=== PATIENT | male | born 1955 | race Caucasian/White ===

== ENCOUNTER 2016-09-20 15:46 | Emergency (ER) | payer SELFPAY ==
[2016-09-20 17:06] LABS: ABSOLUTE BASOPHILS # (AUTO) 0.1 10^3/uL (0.0-0.2); ABSOLUTE EOSINOPHILS # (AUTO) 0.2 10^3/uL (0.0-0.6); ABSOLUTE LYMPHOCYTES (AUTO) 2.3 10^3/uL (0.5-4.7); ABSOLUTE MONOCYTES (AUTO) 0.2 10^3/uL (0.1-1.4); ABSOLUTE NEUT (AUTO) 3.2 10^3/uL (1.7-8.2); BASOPHILS % (AUTO) 1.1 % (0-2); EOSINOPHILS % (AUTO) 2.6 % (0-6); HEMATOCRIT 43.3 % (37.9-51.0); HEMOGLOBIN 15.3 g/dL (13.5-17.0); HGB HCT DIFFERENCE 2.6; LYMPHOCYTES % (AUTO) 39.4 % (13-45); MEAN CORPUSCULAR HEMOGLOBIN 30.9 pg (27.0-33.4); MEAN CORPUSCULAR HGB CONC 35.3 g/dL (32.0-36.0); MEAN CORPUSCULAR VOLUME 87 fl (80-97); MONOCYTES % (AUTO) 3.2 % (3-13); RED BLOOD COUNT 4.95 10^6/uL (4.35-5.55); RED CELL DISTRIBUTION WIDTH 12.5 % (11.5-14.0); SEGMENTED NEUTROPHILS % (AUTO) 53.7 % (42-78); WHITE BLOOD COUNT 5.9 10^3/uL (4.0-10.5)
[2016-09-20 17:23] LABS: ALANINE AMINOTRANSFERASE 37 U/L (21-72); ALBUMIN 4.4 g/dL (3.5-5.0); ALKALINE PHOSPHATASE 89 U/L (38-126); ANION GAP 11 (5-19); ASPARTATE AMINO TRANSFERASE 31 U/L (17-59); BILIRUBIN,DIRECT 0.4 mg/dL (0.0-0.4); BILIRUBIN,TOTAL 1.6 mg/dL (0.2-1.3); BLOOD UREA NITROGEN 18 mg/dL (7-20); CALCIUM 9.7 mg/dL (8.4-10.2); CARBON DIOXIDE 25 mmol/L (22-30); CHLORIDE 105 mmol/L (98-107); GLUCOSE 94 mg/dL (75-110); SODIUM 141.4 mmol/L (137-145); TOTAL PROTEIN 7.8 g/dL (6.3-8.2)
--- NOTE | 2016-09-20 18:28 | ER Document Report ---
ED General - General Chief Complaint: Knee Pain Stated Complaint: LEFT FOOT PAIN Mode of Arrival: Ambulatory Information source: Patient Notes: 61-year-old male presents with complaints of left knee pain down to his feet. Patient notes symptoms have been ongoing for a week initially started as a cramping sensation. Patient denies any chest pain shortness breath difficulty breathing. Patient is on diuretics. Patient's mother has had DVT in the past. Patient is not on supplemental potassium TRAVEL OUTSIDE OF THE [place] IN LAST 30 DAYS: No - HPI Onset: Last week Onset/Duration: Persistent Quality of pain: Achy, Cramping Severity: Mild Pain Level: 1 Associated symptoms: Leg swelling Exacerbated by: Walking Relieved by: Denies Similar symptoms previously: No Recently seen / treated by doctor: No - Related Data Allergies/Adverse Reactions: No Known Allergies Allergy (Verified 03/08/12 07:21) Past Medical History - Social History Smoking Status: Never Smoker Cigarette use (# per day): No Chew tobacco use (# tins/day): No Smoking Education Provided: No Family History: Reviewed & Not Pertinent - Past Medical History Cardiac Medical History: Reports: Hx Hypertension Renal/ Medical History: Denies: Hx Peritoneal Dialysis Malignancy Medical History: Reports Hx Skin Cancer Musculoskeltal Medical History: Reports Hx Musculoskeletal Deformity, Reports Hx Musculoskeletal Trauma - Immunizations Hx Diphtheria, Pertussis, Tetanus Vaccination: Yes Review of Systems - Review of Systems Notes: REVIEW OF SYSTEMS: CONSTITUTIONAL : Denies fever, chills, or sweats. Denies recent illness. EENT: Denies eye, ear, throat, or mouth pain or symptoms. Denies nasal or sinus congestion or discharge. Denies throat, tongue, or mouth swelling or difficulty swallowing. CARDIOVASCULAR: Denies chest pain. Denies palpitations or racing or irregular heart beat. Denies ankle edema. RESPIRATORY: Denies cough, cold, or chest congestion. Denies shortness of breath, difficulty breathing, or wheezing. GASTROINTESTINAL: Denies abdominal pain or distention. Denies nausea, vomiting , or diarrhea. Denies blood in vomitus, stools, or per rectum. Denies black, tarry stools. Denies constipation. GENITOURINARY: Denies difficulty urinating, painful urination, burning, frequency, blood in urine, or discharge. MUSCULOSKELETAL: Left calf pain SKIN: Denies rash, lesions or sores. HEMATOLOGIC : Denies easy bruising or bleeding. LYMPHATIC: Denies swollen, enlarged glands. NEUROLOGICAL: Denies confusion or altered mental status. Denies passing out or loss of consciousness. Denies dizziness or lightheadedness. Denies headache. Denies weakness or paralysis or loss of use of either side. Denies problems with gait or speech. Denies sensory loss, numbness, or tingling. Denies seizures. PSYCHIATRIC: Denies anxiety or stress. Denies depression, suicidal ideation, or homicidal ideation. ALL OTHER SYSTEMS REVIEWED AND NEGATIVE. Dictation was performed using [employer] recognition software PHYSICAL EXAMINATION: GENERAL: Well-appearing, well-nourished and in no acute distress. HEAD: Atraumatic, normocephalic. EYES: Pupils equal round and reactive to light, extraocular movements intact, sclera anicteric, conjunctiva are normal. ENT: Nares patent, oropharynx clear without exudates. Moist mucous membranes. NECK: Normal range of motion, supple without lymphadenopathy LUNGS: Breath sounds clear to auscultation bilaterally and equal. No wheezes rales or rhonchi. HEART: Regular rate and rhythm without murmurs ABDOMEN: Soft, nontender, nondistended abdomen. No guarding, no rebound. No masses appreciated. Musculoskeletal: Normal range of motion, no pitting or edema. No cyanosis. NEUROLOGICAL: Cranial nerves grossly intact. Normal speech, normal gait. Normal sensory, motor exams PSYCH: Normal mood, normal affect. SKIN: Warm, Dry, normal turgor, no rashes or lesions noted. Physical Exam - Vital signs Vitals: Temp Pulse Resp BP Pulse Ox 98.3 F 81 16 103/72 96 09/20/16 15:54 09/20/16 15:54 09/20/16 15:54 09/20/16 15:54 09/20/16 15:54 Course - Re-evaluation Re-evalutation: 09/20/16 19:18 There is no obvious edema erythema, pulses are intact sensation is intact. Doppler was negative lab work notes no hypokalemia obvious cause of the patient' s pain. I will have him follow-up with his primary care physician for reevaluation and possible cardiology versus neurology After performing a Medical Screening Examination, I estimate there is LOW risk for INTRACRANIAL HEMORRHAGE, UNSTABLE SPINE FRACTURE, CENTRAL CORD SYNDROME, CAUDA EQUINA, THORACIC AORTIC DISSECTION, PNEUMOTHORAX, PERFORATED BOWEL, RUPTURED ABDOMINAL AORTIC ANEURYSM, ACUTE TENDON RUPTURE, COMPARTMENT SYNDROME, or OPEN FRACTURE, thus I consider the discharge disposition reasonable. Also, there is no evidence or peritonitis, sepsis, or toxicity. I have reevaluated this patient multiple times and no significant life threatening changes are noted. The patient and I have discussed the diagnosis and risks, and we agree with discharging home to follow-up with their primary doctor with the understanding that symptoms and presentations can change. We also discussed returning to the Emergency Department immediately if new or worsening symptoms occur. We have discussed the symptoms which are most concerning (e.g., bloody stool, fever, changing or worsening pain, vomiting) that necessitate immediate return. - Vital Signs Vital signs: Temp Pulse Resp BP Pulse Ox 98.3 F 81 16 103/72 96 09/20/16 15:54 09/20/16 15:54 09/20/16 15:54 09/20/16 15:54 09/20/16 15:54 - Laboratory Result Diagrams: 09/20/16 16:50 09/20/16 16:50 Laboratory results interpreted by me: 09/20/16 16:50 Total Bilirubin 1.6 H - Diagnostic Test Radiology reviewed: Image reviewed, Reports reviewed Discharge - Discharge Clinical Impression: Calf pain Qualifiers: Laterality: left Qualified Code(s): M79.662 - Pain in left lower leg Condition: Stable Disposition: HOME, SELF-CARE Instructions: Leg Cramps ([facility]), Leg Pain Nonspecific ([facility]) Prescriptions: Acetaminophen with Codeine [Tylenol #3 Tablet] 1 each PO Q4HP PRN #30 tablet PRN Reason: Referrals: ALTA NAYLOR MD [Primary Care Provider] - Follow up tomorrow
[2016-09-20] MEDS ORDERED: ACETAMINOPHEN WITH CODEINE #3 TABLET PO ONE (18:45)
[2016-09-20 19:23] VITALS: BP 134/83
== END 2016-09-20 18:45 | disposition home or self-care (01) ==
LOC: ER 15:46
DX: M79.662 Pain in left lower leg (principal); M25.562 Pain in left knee
CPT/HCPCS: 36415; 80053; 85025; 93971; 99284

== ENCOUNTER 2017-04-20 11:56 | Emergency (ER) | payer SELFPAY ==
--- NOTE | 2017-04-20 14:08 | ER Document Report ---
ED General - General Chief Complaint: High Blood Pressure Stated Complaint: BLOOD PRESSURE ISSUES Time Seen by Provider: 04/20/17 14:08 Notes: The patient is a 61-year-old male, past medical history hypertension, presents with several weeks of intermittent dull frontal headache and concern that his blood pressure is elevated. He took it at home and it was 160/90. He is taking his benazepril as instructed and his primary care physician is adjusting his medications. Patient says that Tylenol is somewhat helping his headache. He denies chest pain, shortness of breath, numbness, tingling, sudden onset of headache, neck stiffness, fevers, ataxia, or blurry vision. TRAVEL OUTSIDE OF THE [place] IN LAST 30 DAYS: No - Related Data Allergies/Adverse Reactions: No Known Allergies Allergy (Verified 04/20/17 12:10) Past Medical History - General Information source: Patient - Social History Smoking Status: Unknown if Ever Smoked Family History: Reviewed & Not Pertinent Patient has suicidal ideation: No Patient has homicidal ideation: No - Past Medical History Cardiac Medical History: Reports: Hx Hypertension Renal/ Medical History: Denies: Hx Peritoneal Dialysis Malignancy Medical History: Reports Hx Skin Cancer Musculoskeltal Medical History: Reports Hx Musculoskeletal Deformity, Reports Hx Musculoskeletal Trauma - Immunizations Hx Diphtheria, Pertussis, Tetanus Vaccination: Yes Review of Systems - Review of Systems Notes: REVIEW OF SYSTEMS: CONSTITUTIONAL: -fevers, -chills EENT: -eye pain, -difficulty swallowing, -nasal congestion CARDIOVASCULAR:-chest pain, -syncope. RESPIRATORY: -cough, -SOB GASTROINTESTINAL: -abdominal pain, - nausea, -vomiting, -diarrhea GENITOURINARY: -dysuria, -hematuria MUSCULOSKELETAL: -back pain, -neck pain SKIN: -rash or skin lesions. HEMATOLOGIC: -easy bruising or bleeding. LYMPHATIC: -swollen, enlarged glands. NEUROLOGICAL: -altered mental status or loss of consciousness, +headache, - neurologic symptoms PSYCHIATRIC: -anxiety, -depression. ALL OTHER SYSTEMS REVIEWED AND NEGATIVE. Physical Exam - Vital signs Vitals: Temp Pulse Resp BP Pulse Ox 98.1 F 58 L 18 153/95 H 96 04/20/17 12:12 04/20/17 12:12 04/20/17 12:12 04/20/17 12:12 04/20/17 12:12 - Notes Notes: PHYSICAL EXAMINATION: GENERAL: Well-appearing, well-nourished and in no acute distress. HEAD: Atraumatic, normocephalic. EYES: Pupils equal round and reactive to light, extraocular movements intact, sclera anicteric, conjunctiva are normal. ENT: nares patent, oropharynx clear without exudates. Moist mucous membranes. NECK: Normal range of motion, supple without lymphadenopathy LUNGS: Breath sounds clear to auscultation bilaterally and equal. No wheezes rales or rhonchi. HEART: Regular rate and rhythm without murmurs ABDOMEN: Soft, nontender, normoactive bowel sounds. No guarding, no rebound. No masses appreciated. EXTREMITIES: Normal range of motion, no pitting or edema. No cyanosis. NEUROLOGICAL: Cranial nerves grossly intact. Normal speech, normal gait. Normal sensory and motor exams. PSYCH: Normal mood, normal affect. SKIN: Warm, Dry, normal turgor, no rashes or lesions noted. Course - Re-evaluation Re-evalutation: Patient appears well. His blood pressure was initially 158/90 and improved to 130/81 without any further intervention. His headache is benign in nature and is not consistent with SAH, ICH or meningitis at this time. Instructed him to keep a blood pressure log and to have his primary care physician adjust his blood pressure medications. He is comfortable with the plan and understands return precautions. - Vital Signs Vital signs: Temp Pulse Resp BP Pulse Ox 97.5 F 58 L 19 116/82 98 04/20/17 14:04 04/20/17 12:12 04/20/17 14:36 04/20/17 14:37 04/20/17 14:36 Discharge - Discharge Clinical Impression: Blood pressure check Headache Qualifiers: Headache type: unspecified Headache chronicity pattern: chronic headache Intractability: not intractable Qualified Code(s): R51 - Headache Condition: Stable Disposition: HOME, SELF-CARE Additional Instructions: HEADACHE: The physician does not feel that the headache you are experiencing has a serious underlying cause. Most headaches are due to emotional stress, with resultant muscle tension (tension headache). Occasionally, headaches are secondary to changes in the blood vessels of the scalp (vascular headache and migraine headache). Sometimes, a headache is the first symptom of another developing illness, such as a viral infection. You have no evidence of stroke, bleeding, meningitis, or other serious cause of your headache. The treatment of headaches varies with the severity and cause of the pain. Not all headaches need pain shots. In fact, there is evidence that using narcotics for headaches may make them worse in the long run. The physician will determine the therapy that's in your best interest. If you develop a fever, if the headache is different from any you've previously experienced, or if the headache progressively worsens, then call your physician at once or go to the emergency room. FOLLOW-UP CARE: If you have been referred to a physician for follow-up care, call the physician s office for an appointment as you were instructed or within the next two days. If you experience worsening or a significant change in your symptoms, notify the physician immediately or return to the Emergency Department at any time for re-evaluation. HIGH BLOOD PRESSURE, NOT TREAT: When your blood pressure was taken today it was elevated. Today's reading was 130/87. We do not think you need to have your blood pressure treated today. Sometimes, stress or illness causes a temporary elevation of your blood pressure. We suggest that you get your blood pressure measured again during the next few days to see if this elevated blood pressure is more than a temporary abnormality. If your blood pressure is greater than 150/90 on each occasion, you must have treatment. Some simple things you can do to help are: If you have blood pressure medicine but aren't using it regularly, start taking it again. Get some aerobic exercise for at least 20 minutes on a daily basis. (See your doctor before beginning a new exercise program.) Eat a low-fat diet. Lose excess weight. Avoid salty foods and avoid adding salt to any of the foods you eat. Avoid diet pills, decongestants, "energizing" herbs, and other medicines that elevate blood pressure. If left untreated, hypertension greatly enhances your risk for developing heart disease and strokes. Please don't ignore this problem. ANGIOTENSIN CONVERTING ENZYME INHIBITOR MEDICATION: "DAVID inhibitor" drugs are used to lower high blood pressure (or to reduce the "work" of the heart in patients with heart failure). These drugs block an enzyme that makes your blood vessels constrict and makes you retain salt. The result is lower blood pressure. DAVID inhibitors cause few side effects. The most common side effect is a dry nagging cough. Occasionally, lightheadedness may occur while you get used to the medicine. Some patients may retain extra potassium (this is a problem if you are taking potassium supplements, potassium-containing salt substitutes, or a potassium-retaining drug such as triamterene, spironolactone, or amiloride) . If you are taking lithium, the lithium level must be rechecked after starting an DAVID inhibitor. DAVID inhibitors should NOT be used during . Contact the doctor or return if you develop severe lightheadedness, wheeze , weakness, palpitations or other new symptoms. FOLLOW-UP CARE: If you have been referred to a physician for follow-up care, call the physician s office for an appointment as you were instructed or within the next two days. If you experience worsening or a significant change in your symptoms, notify the physician immediately or return to the Emergency Department at any time for re-evaluation. Forms: Elevated Blood Pressure Referrals: ALTA NAYLOR MD [Primary Care Provider] - Follow up as needed
[2017-04-20 14:43] VITALS: BP 116/82
== END 2017-04-20 14:42 | disposition home or self-care (01) ==
LOC: ER 11:56
DX: I10 Essential (primary) hypertension (principal); R51 Headache
CPT/HCPCS: 99283

== ENCOUNTER 2019-03-05 20:40 | Observation (INO) | payer MEDICARE, OTHER ==
--- NOTE | 2019-03-05 23:21 | ER Document Report ---
ED Medical Screen (RME) - General Chief Complaint: Dizziness Stated Complaint: VOMITING,DIZZY Time Seen by Provider: 03/05/19 23:18 Primary Care Provider: JUANCARLOS SULLIVAN MD [Primary Care Provider] - Follow up as needed Notes: Patient is a 63-year-old male history of hypertension presents to the emergency department for an episode of dizziness. Patient states he was at [employer] when all of a sudden he got dizzy and lightheaded. States he felt generalized weakness. Patient's denying any chest pain or shortness of breath. Family states patient broke out in a sweat and then had 2 episodes of vomiting. Patien t states that this time he just feels generalized weakness. Patient voices yesterday as took his blood pressure and it was 80 systolic. States he drank some water and felt better. Patient also complains of generalized jaw pain over the last couple of days. GENERAL: Alert, interacts well. No acute distress. LUNGS: Clear to auscultation bilaterally, no wheezes, rales, or rhonchi. No respiratory distress. I have greeted and performed a rapid initial assessment of this patient. A comprehensive ED assessment and evaluation of the patient, analysis of test results and completion of the medical decision making process will be conducted by additional ED providers. I have specifically instructed the patient or family members with the patient to immediately return to any nursing staff should anything change in the patient's condition or with their chief complaint. This medical record was dictated with voice recognizing software. There may be grammatical, syntax errors that are unintended. TRAVEL OUTSIDE OF THE [place] IN LAST 30 DAYS: No - Related Data Allergies/Adverse Reactions: No Known Allergies Allergy (Verified 04/20/17 12:10) Past Medical History - Social History Chew tobacco use (# tins/day): No - Past Medical History Cardiac Medical History: Reports: Hx Hypertension Renal/ Medical History: Denies: Hx Peritoneal Dialysis Malignancy Medical History: Reports Hx Skin Cancer Musculoskeltal Medical History: Reports Hx Musculoskeletal Deformity, Reports Hx Musculoskeletal Trauma - Immunizations Hx Diphtheria, Pertussis, Tetanus Vaccination: Yes Physical Exam - Vital signs Vitals: Temp Pulse Resp BP Pulse Ox 98.0 F 58 L 16 115/74 92 03/05/19 21:10 03/05/19 21:10 03/05/19 21:10 03/05/19 21:10 03/05/19 21:10 Course - Vital Signs Vital signs: Temp Pulse Resp BP Pulse Ox 98.0 F 58 L 16 115/74 92 03/05/19 21:10 03/05/19 21:10 03/05/19 21:10 03/05/19 21:10 03/05/19 21:10 Doctor's Discharge - Discharge Referrals: JUANCARLOS SULLIVAN MD [Primary Care Provider] - Follow up as needed
[2019-03-05 23:50] LABS: ABSOLUTE BASOPHILS # (AUTO) 0.1 10^3/uL (0.0-0.2); ABSOLUTE EOSINOPHILS # (AUTO) 0.1 10^3/uL (0.0-0.6); ABSOLUTE LYMPHOCYTES (AUTO) 1.8 10^3/uL (0.5-4.7); ABSOLUTE MONOCYTES (AUTO) 0.3 10^3/uL (0.1-1.4); ABSOLUTE NEUT (AUTO) 4.5 10^3/uL (1.7-8.2); BASOPHILS % (AUTO) 0.9 % (0-2); EOSINOPHILS % (AUTO) 1.6 % (0-6); HEMATOCRIT 43.5 % (37.9-51.0); HEMOGLOBIN 14.9 g/dL (13.5-17.0); LYMPHOCYTES % (AUTO) 26.3 % (13-45); MEAN CORPUSCULAR HEMOGLOBIN 30.1 pg (27.0-33.4); MEAN CORPUSCULAR HGB CONC 34.3 g/dL (32.0-36.0); MEAN CORPUSCULAR VOLUME 88 fl (80-97); MONOCYTES % (AUTO) 4.7 % (3-13); PLATELET COUNT 286 10^3/uL (150-450); RED BLOOD COUNT 4.96 10^6/uL (4.35-5.55); RED CELL DISTRIBUTION WIDTH 12.6 % (11.5-14.0); SEGMENTED NEUTROPHILS % (AUTO) 66.5 % (42-78); TOTAL CELLS COUNTED % (AUTO) 100 %; WHITE BLOOD COUNT 6.8 10^3/uL (4.0-10.5)
[2019-03-06 00:01] LABS: ALBUMIN 4.2 g/dL (3.5-5.0); ALKALINE PHOSPHATASE 85 U/L (38-126); ANION GAP 11 (5-19); ASPARTATE AMINO TRANSFERASE 28 U/L (17-59); BILIRUBIN,DIRECT 0.2 mg/dL (0.0-0.4); BLOOD UREA NITROGEN 21 mg/dL (7-20); CALCIUM 9.6 mg/dL (8.4-10.2); CARBON DIOXIDE 25 mmol/L (22-30); CHLORIDE 100 mmol/L (98-107); CREATINE KINASE 192 U/L (55-170); GLUCOSE 155 mg/dL (75-110); POTASSIUM 3.8 mmol/L (3.6-5.0); TOTAL PROTEIN 7.4 g/dL (6.3-8.2)
--- NOTE | 2019-03-06 00:01 | RADIOLOGY REPORT (SQ) ---
EXAM DESCRIPTION: XR CHEST 1 VIEW COMPLETED DATE/TME: 03/05/2019 23:18 CLINICAL HISTORY: 63 years, Male, dizziness COMPARISON: Prior study from 03/08/2012 NUMBER OF VIEWS: One TECHNIQUE: Single frontal view of the chest was obtained LIMITATIONS: None. FINDINGS: Cardiac and mediastinal contours are stable. There is focal asymmetric opacity located about the right apex, new from the previous examination dated 03/08/2012. Lungs are otherwise clear. No pleural effusion or pneumothorax. IMPRESSION: Asymmetric nodular opacity projecting about the right apex appears new from the previous study dated 03/08/2012. Recommend correlation with dedicated CT of the chest. Otherwise, clear lungs. copyright 2010 [employer]- All Rights Reserved
[2019-03-06 00:11] LABS: CREATINE KINASE MB 2.05 ng/mL (<4.55)
[2019-03-06 00:14] LABS: TROPONIN I < 0.012 ng/mL
[2019-03-06 01:00] LABS: APPEARANCE,URINE CLEAR; BILIRUBIN,URINE NEGATIVE (NEGATIVE); COLOR,URINE YELLOW; GLUCOSE, URINE NEGATIVE (NEGATIVE); KETONES,URINE NEGATIVE (NEGATIVE); LEUKOCYTE ESTERASE,URINE NEGATIVE (NEGATIVE); NITRITE,URINE NEGATIVE (NEGATIVE); PROTEIN,URINE NEGATIVE (NEGATIVE); URINE SPECIFIC GRAVITY 1.029
--- NOTE | 2019-03-06 01:19 | ER Document Report ---
ED General - General Chief Complaint: Dizziness Stated Complaint: VOMITING,DIZZY Time Seen by Provider: 03/05/19 23:18 Notes: Patient is a 63-year-old male that comes emergency department for chief complaint of an episode that happened earlier when he was getting out of the car when he suddenly felt really lightheaded, he states he broke out into a sweat, and he got nauseated and vomited twice. He states he felt like he was in a pass out but he did not. He states he got pains in his jaw as well. He denies spinning around in a [place] sensation. He denies headache, chest pain, shortness of breath. He states that he did this earlier in the week as well and he checked his blood pressure in the systolic was 80. He states he feels a week now but he denies any current complaints. Patient does work outside in the sun all day. Is on medication for hypertension, he has a history of basal cell carcinoma which was removed, he denies smoking, alcohol, recreational drugs, he denies medical history otherwise. TRAVEL OUTSIDE OF THE [place] IN LAST 30 DAYS: No - Related Data Allergies/Adverse Reactions: No Known Allergies Allergy (Verified 04/20/17 12:10) Past Medical History - General Information source: Patient - Social History Smoking Status: Never Smoker Chew tobacco use (# tins/day): No Frequency of alcohol use: None Drug Abuse: None Lives with: Family Family History: Reviewed & Not Pertinent Patient has suicidal ideation: No Patient has homicidal ideation: No - Past Medical History Cardiac Medical History: Reports: Hx Hypertension Renal/ Medical History: Denies: Hx Peritoneal Dialysis Malignancy Medical History: Reports Hx Skin Cancer Musculoskeletal Medical History: Reports Hx Musculoskeletal Deformity, Reports Hx Musculoskeletal Trauma - Immunizations Hx Diphtheria, Pertussis, Tetanus Vaccination: Yes Review of Systems - Review of Systems Constitutional: No symptoms reported EENT: No symptoms reported Cardiovascular: See HPI Respiratory: No symptoms reported Gastrointestinal: See HPI Genitourinary: No symptoms reported Male Genitourinary: No symptoms reported Musculoskeletal: No symptoms reported Skin: No symptoms reported Hematologic/Lymphatic: No symptoms reported Neurological/Psychological: See HPI Physical Exam - Vital signs Vitals: Temp Pulse Resp BP Pulse Ox 98.0 F 58 L 16 115/74 92 03/05/19 21:10 03/05/19 21:10 03/05/19 21:10 03/05/19 21:10 03/05/19 21:10 - Notes Notes: GENERAL: Alert, interacts well. No acute distress. HEAD: Normocephalic, atraumatic. EYES: Pupils equal, round, and reactive to light. Extraocular movements intact. ENT: Oral mucosa moist, tongue midline. Oropharynx unremarkable. Airway patent. Nares patent, no nasal septal hematoma NECK: Full range of motion. Supple. Trachea midline. LUNGS: Clear to auscultation bilaterally, no wheezes, rales, or rhonchi. No respiratory distress. HEART: Bradycardia, normal rhythm, no murmur ABDOMEN: Soft, non-tender. Non-distended. EXTREMITIES: Moves all 4 extremities spontaneously. No edema, normal radial and dorsalis pedis pulses bilaterally. No cyanosis. BACK: no cervical, thoracic, lumbar midline tenderness. No saddle anesthesia, normal distal neurovascular exam. Moves all extremities in full range of motion. NEUROLOGICAL: Alert and oriented x3. Normal speech. Cranial nerves II through XII grossly intact. PSYCH: Normal affect, normal mood. SKIN: Warm, dry, normal turgor. No rashes or lesions noted. Course - Re-evaluation Re-evalutation: Patient symptoms reported are concerning. On exam he is bradycardic but he is otherwise well-appearing. CBC unremarkable, chemistry unremarkable, troponin negative, urinalysis shows elevated specific gravity but is otherwise unremarkable, given IV fluids. Chest x-ray nonspecific. I discussed patient's presentation, work-up, symptoms with Dr. Lam. He does r ecommend admission for syncopal work-up because of patient's symptoms, symptoms are concerning including diaphoresis, vomiting, jaw pain, lightheadedness, and bradycardia on presentation. Will discuss with hospitalist. I discussed with family and they are in full agreement with this plan. Discussed with Dr. Farias, internal medicine, he does request orthostatic vital signs, these were performed and shows he develops worsening bradycardia with standing but no other findings were noted. Patient admitted to telemetry observation. - Vital Signs Vital signs: Temp Pulse Resp BP Pulse Ox 97.5 F 56 L 20 146/78 H 99 03/06/19 05:24 03/06/19 05:36 03/06/19 05:24 03/06/19 05:24 09/29/19 05:24 - Laboratory Result Diagrams: 03/05/19 23:20 03/05/19 23:20 Laboratory results interpreted by me: 03/05/19 03/06/19 23:20 00:41 Sodium 135.9 L BUN 21 H Glucose 155 H Creatine Kinase 192 H Urine Urobilinogen 2.0 H - EKG Interpretation by Me Additional EKG results interpreted by me: EKG shows sinus bradycardia at a rate of 54, QTC of 433, first-degree heart block with ME interval of 204. Normal axis. Nonspecific intraventricular conduction delay. No T wave inversions or ST segment changes in consecutive leads. Discharge - Discharge Clinical Impression: Near syncope, Bradycardia, Lightheadedness Vomiting Qualifiers: Vomiting type: unspecified Vomiting Intractability: non-intractable Nausea presence: with nausea Qualified Code(s): R11.2 - Nausea with vomiting, unspecified Condition: Stable Disposition: ADMITTED OBSERVATION Admitting Provider: Jarrett (Hospitalist) Unit Admitted: Telemetry
[2019-03-06] MEDS ORDERED: NORMAL SALINE 1000 ML 1,000 ML IV ONE (01:20)
[2019-03-06] MEDS ORDERED: ACETAMINOPHEN 325 MG TABLET PO PRN (03:05)
[2019-03-06] MEDS ORDERED: MAG HYDROX/AL HYDROX/SIMETH SUSP 30 ML UDCUP PO PRN (03:05)
[2019-03-06 04:21] LABS: CREATINE KINASE MB 1.72 ng/mL (<4.55); TROPONIN I < 0.012 ng/mL
[2019-03-06] MEDS: HEPARIN SOD (PORCINE) 5,000 UNIT/ML 1 ML VIAL SUBCUT SCH ×3 (05:46→21:38)
[2019-03-06] MEDS: NORMAL SALINE 1000 ML 1,000 ML IV PRN ×2 (05:47→09:35)
--- NOTE | 2019-03-06 06:17 | PDOC H&P ---
History of Present Illness Admission Date/PCP: 03/06/19 03:49 JUANCARLOS SULLIVAN MD Patient complains of: Lightheadedness History of Present Illness: MARCOS ARMENDARIZ JR is a 63 year old male with a past medical history of osteoarthritis and hypertension presents with 3 days of general fatigue followed by 2 presyncopal episodes in the last 12 hours occurring upon standing from a sitting position. 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 He denies headache, blurred vision, focal weakness, chest pain shortness of breath nausea vomiting or palpitations. He denies recent change of medications, excessive energy drinks or caffeine. In the emergency room he is found to have bradycardia and a nonspecific intraventricular conduction delay. Orthostatic blood pressures are unable to reproduce symptoms and he is referred to the hospitalist for admission. Patient is tearful and does admit exceptional social stressors and describes grief after the recent of his brother from an unknown cancer. Past Medical History Cardiac Medical History: Reports: Hypertension Malignancy Medical History: Reports: Skin Cancer Psychiatric Medical History: Reports: Depression Social History Information Source: Patient Lives with: Family Smoking Status: Never Smoker Frequency of Alcohol Use: None Hx Recreational Drug Use: No Drugs: None Hx Prescription Drug Abuse: No - Advance Directive Resuscitation Status: Full Code Family History Family History: Reviewed & Not Pertinent Parental Family History Reviewed: Yes Children Family History Reviewed: Yes Sibling(s) Family History Reviewed.: Yes Medication/Allergy Home Medications: Benazepril/Hydrochlorothiazide [Lotensin Hct 20-12.5 Tablet] 1 each PO BID 03/08/12 Allergies/Adverse Reactions: No Known Allergies Allergy (Verified 04/20/17 12:10) Review of Systems Constitutional: ABSENT: chills, fever(s), headache(s), weight gain, weight loss Eyes: ABSENT: visual disturbances Ears: ABSENT: hearing changes Cardiovascular: ABSENT: chest pain, dyspnea on exertion, edema, orthropnea, palpitations Respiratory: ABSENT: cough, hemoptysis Gastrointestinal: ABSENT: abdominal pain, constipation, diarrhea, hematemesis, hematochezia, nausea, vomiting Genitourinary: ABSENT: dysuria, hematuria Musculoskeletal: ABSENT: joint swelling Integumentary: ABSENT: rash, wounds Neurological: ABSENT: abnormal gait, abnormal speech, confusion, dizziness, focal weakness, syncope Psychiatric: ABSENT: anxiety, depression, homidical ideation, suicidal ideation Endocrine: ABSENT: cold intolerance, heat intolerance, polydipsia, polyuria Hematologic/Lymphatic: ABSENT: easy bleeding, easy bruising Physical Exam Vital Signs: Temp Pulse Resp BP Pulse Ox 97.5 F 53 L 20 146/78 H 99 03/06/19 05:24 03/06/19 05:24 03/06/19 05:24 03/06/19 05:24 03/06/19 05:24 Intake & Output 03/04/19 03/05/19 03/06/19 11:59 11:59 11:59 Intake Total 1000 Balance 1000 Weight 100.6 kg General appearance: PRESENT: no acute distress, cooperative, obese, well-d eveloped, well-nourished Head exam: PRESENT: atraumatic, normocephalic Eye exam: PRESENT: conjunctiva pink, EOMI, PERRLA. ABSENT: scleral icterus Ear exam: PRESENT: normal external ear exam Mouth exam: PRESENT: moist, tongue midline Neck exam: ABSENT: carotid bruit, JVD, lymphadenopathy, thyromegaly Respiratory exam: PRESENT: clear to auscultation leila. ABSENT: rales, rhonchi, wheezes Cardiovascular exam: PRESENT: bradycardia. ABSENT: diastolic murmur, rubs, systolic murmur Pulses: PRESENT: normal dorsalis pedis pul Vascular exam: PRESENT: normal capillary refill GI/Abdominal exam: PRESENT: normal bowel sounds, soft. ABSENT: distended, gua rding, mass, organolmegaly, rebound, tenderness Rectal exam: PRESENT: deferred Extremities exam: PRESENT: full ROM. ABSENT: calf tenderness, clubbing, pedal edema Neurological exam: PRESENT: alert, awake, oriented to person, oriented to place, oriented to time, oriented to situation, CN II-XII grossly intact. ABSENT: peng r sensory deficit Psychiatric exam: PRESENT: appropriate affect, normal mood. ABSENT: homicidal ideation, suicidal ideation Skin exam: PRESENT: dry, intact, warm. ABSENT: cyanosis, rash Results Laboratory Results: 03/05/19 23:20 03/05/19 23:20 03/05/19 03/05/19 03/06/19 23:20 23:20 00:41 WBC 6.8 RBC 4.96 Hgb 14.9 Hct 43.5 MCV 88 MCH 30.1 MCHC 34.3 RDW 12.6 Plt Count 286 Seg Neutrophils % 66.5 Sodium 135.9 L Potassium 3.8 Chloride 100 Carbon Dioxide 25 Anion Gap 11 BUN 21 H Creatinine 1.05 Est GFR ( Amer) > 60 Glucose 155 H Calcium 9.6 Magnesium Total Bilirubin 1.0 AST 28 Alkaline Phosphatase 85 Total Protein 7.4 Albumin 4.2 Urine Color YELLOW Urine Appearance CLEAR Urine pH 5.0 Ur Specific [place] 1.029 Urine Protein NEGATIVE Urine Glucose (UA) NEGATIVE Urine Ketones NEGATIVE Urine Blood NEGATIVE Urine Nitrite NEGATIVE Ur Leukocyte Esterase NEGATIVE Urine WBC (Auto) 1 Urine RBC (Auto) 2 03/06/19 03:10 WBC RBC Hgb Hct MCV MCH MCHC RDW Plt Count Seg Neutrophils % Sodium Potassium Chloride Carbon Dioxide Anion Gap BUN Creatinine Est GFR ( Amer) Glucose Calcium Magnesium 1.9 Total Bilirubin AST Alkaline Phosphatase Total Protein Albumin Urine Color Urine Appearance Urine pH Ur Specific [place] Urine Protein Urine Glucose (UA) Urine Ketones Urine Blood Urine Nitrite Ur Leukocyte Esterase Urine WBC (Auto) Urine RBC (Auto) 03/05/19 03/05/19 03/06/19 23:20 23:20 03:10 Creatine Kinase 192 H CK-MB (CK-2) 2.05 1.72 Troponin I < 0.012 < 0.012 03/06/19 03:10 Creatine Kinase 152 CK-MB (CK-2) Troponin I Impressions: Chest X-Ray 03/05/19 23:18 IMPRESSION: Asymmetric nodular opacity projecting about the right apex appears new from the previous study dated 03/08/2012. Recommend correlation with dedicated CT of the chest. Otherwise, clear lungs. copyright 2010 [employer]- All Rights Reserved Assessment and Plan - Diagnosis (1) Bradycardia Is this a current diagnosis for this admission?: Yes Plan: Telemetry observation, follow-up cardiac enzymes, orthostatic blood pressures, echocardiogram and carotid Doppler (2) Grief Is this a current diagnosis for this admission?: Yes Plan: Consider SSRI (3) Lightheadedness Is this a current diagnosis for this admission?: Yes Plan: Likely secondary to #1, IV fluid challenge - Time Time Spent with patient: 25-34 minutes - Inpatient Certification Medical Necessity: Need Close Monitoring Due to Risk of Patient Decompensation
[2019-03-06 07:56] LABS: URINE AMPHETAMINES SCREEN NEGATIVE; URINE BARBITURATES SCREEN NEGATIVE; URINE BENZODIAZEPINES SCREEN NEGATIVE; URINE COCAINE SCREEN NEGATIVE; URINE MARIJUANA (THC) SCREEN NEGATIVE; URINE METHADONE SCREEN NEGATIVE; URINE PHENCYCLIDINE SCREEN NEGATIVE
[2019-03-06 08:53] LABS: CREATINE KINASE MB 1.52 ng/mL (<4.55)
[2019-03-06 08:55] LABS: TROPONIN I < 0.012 ng/mL
--- NOTE | 2019-03-06 11:00 | RADIOLOGY REPORT (SQ) ---
EXAM DESCRIPTION: CTA CHEST COMPLETED DATE/TIME: 03/06/2019 10:44 am REASON FOR STUDY: syncope, tachycardia, elevated d.dimer COMPARISON: Chest radiograph TECHNIQUE: CT scan of the chest performed using helical scanning technique with dynamic intravenous contrast injection. Images reviewed with lung, soft tissue and bone windows. Reconstructed coronal and sagittal MPR images reviewed. Additional 3 dimensional post-processing performed to develop Maximal Intensity Projection images (PR P). All images stored on PACS. All CT scanners at this facility use dose modulation, iterative reconstruction, and/or weight based d osing when appropriate to reduce radiation dose to as low as reasonably achievable (ALARA). [facility]: Dose Right [facility]: CareDose [facility]: Dose Right [facility]: Teradose 4D [facility]: [employer] CONTRAST TYPE AND DOSE: contrast/concentration: Isovue 350.00 mg/ml; Total Contrast Delivered: 69.0 ml; Total Saline Delivered: 80.0 ml Contrast bolus optimized for the pulmonary arteries. Not diagnostic for the aorta. RENAL FUNCTION: GFR > 60. RADIATION DOSE: CT Rad equipment meets quality standard of care and radiation dose reduction techniq ues were employed. CTDIvol: 24.4 - 26.4 mGy. DLP: 944 mGy-cm. . LIMITATIONS: None. FINDINGS: LUNGS AND PLEURA: No masses, infiltrates, or pneumothorax. No pleural effusions or pleura l calcifications. AORTA AND GREAT VESSELS: No aneurysm. Contrast bolus not optimized for the aorta. HEART: No pericardial effusion. No significant coronary artery calcifications. PULMONARY ARTERIES: No emboli visualized in the main pulmonary arteries or the segmental branches. HILAR AND MEDIASTINAL STRUCTURES: No identified masses or abnormal nodes. HARDWARE: None in the chest. UPPER ABDOMEN: No significant findings. Limited exam. THYROID AND OTHER SOFT TISSUES: No masses. No adenopathy. BONES: No acute or significant finding. 3D MIPS: Confirm above findings. OTHER: No other significant finding. IMPRESSION: NORMAL CTA OF THE CHEST. NO PULMONARY EMBOLI. COMMENT: Quality ID # 436: Final reports with documentation of one or more dose reduction techniques (e.g., Automated exposure control, adjustment of the mA and/or kV according to patient size, use of iterative reconstruction technique) TECHNICAL DOCUMENTATION: JOB ID: [id number] [employer]- All Rights Reserved Reading location - IP/workstation name: [email or web address]
[2019-03-06] MEDS ORDERED: (PENDING PHARMACY ID) (Benazepril Hcl [Benazepril Hcl] 40 MG) PO SCH (13:00)
[2019-03-06] MEDS ORDERED: MECLIZINE HCL 25 MG TABLET PO PRN (14:11)
--- NOTE | 2019-03-06 14:37 | Progress Note ---
Provider Note Provider Note: MARCOS ARMENDARIZ JR is a 63 year old male with a past medical history of osteoarthritis and hypertension who was admitted early this morning by the talk show host for presyncope. Briefly met with the patient and his family today; symptoms are somewhat suggestive of vertigo. The patient had to have generalized fatigue for 2 to 3 days with left ear discomfort but no other symptoms. Approximately 20 minutes prior to his presyncopal event, the patient had commented to his that he felt like "the car was rolling up on its side;" patient commented he had a persistent leaning to the left sensation. He stood up to get out of the car and then bent over to pick something up off the seat when he suddenly had an onset of lightheadedness, diaphoresis, and nausea. Overnight events, vital signs, laboratory and imaging results, and orders reviewed. Plan of care as established by the previous provider. In addition, we will add meclizine every 8 hours as needed dizziness. Orthostatic vital signs were negative today. Have resumed his home dose antihypertensive. Encourage the patient ambulate in the hallways while his family were here so he could be monitored on telemetry during light activity. Echocardiogram and carotid Doppler pending; discharge following test results.
[2019-03-06] MEDS: BENAZEPRIL HCL 20 MG TABLET PO SCH (14:45)
[2019-03-06] MEDS: HYDROCHLOROTHIAZIDE 25 MG TABLET PO SCH (14:45)
[2019-03-06 15:13] LABS: CREATINE KINASE MB 1.37 ng/mL (<4.55); TROPONIN I < 0.012 ng/mL
--- NOTE | 2019-03-07 00:51 | EKG REPORT ---
SEVERITY:- ABNORMAL ECG - SINUS RHYTHM PROBABLE LEFT ATRIAL ABNORMALITY NONSPECIFIC INTRAVENTRICULAR CONDUCTION DELAY : Confirmed by: Santy Yu 07-Mar-2019 00:50:52
[2019-03-07] MEDS: HEPARIN SOD (PORCINE) 5,000 UNIT/ML 1 ML VIAL SUBCUT SCH ×2 (05:25→13:33)
[2019-03-07] MEDS: HYDROCHLOROTHIAZIDE 25 MG TABLET PO SCH (09:06)
[2019-03-07] MEDS: BENAZEPRIL HCL 20 MG TABLET PO SCH (09:07)
--- NOTE | 2019-03-07 13:23 | RADIOLOGY REPORT (SQ) ---
EXAM DESCRIPTION: CAROTID DOPPLER COMPLETED DATE/TIME: 03/07/2019 11:25 am REASON FOR STUDY: syncope COMPARISON: None. TECHNIQUE: Grayscale ultrasound, Doppler velocity and spectra, and color Doppler images acquired of the extra-cranial carotid and vertebral arteries. Images stored on PACS. LIMITATIONS: None. FINDINGS: RIGHT CAROTID CCA Velocities: Within normal limits. ICA Velocities Peak systolic 103 cm/s. End diastolic 40 cm/s. Proximal ICA/CCA peak systolic ratio 2.0. There is small amount of plaque in ICA LEFT CAROTID CCA Velocities: Within normal limits. ICA Velocities Peak systolic 80 cm/s. End diastolic 32 cm/s. Proximal ICA/CCA peak systolic ratio 1.13. Spectra normal. No significant plaque. VERTEBRAL ARTERIES: Antegrade flow. Normal waveforms. SUBCLAVIAN ARTERIES: No finding. OTHER: No other significant finding. 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 Less than 50% arie nosis on the left. COMMENT: Quality ID #[id number]: Velocity criteria are extrapolated from the diameter data as defined by t he Society of Radiologists in Ultrasound Consensus Conference. Radiology 2003: 229; 340-346. TECHNICAL DOCUMENTATION: JOB ID: [id number] [employer]- All Rights Reserved Reading location - IP/workstation name: [email or web address]
[2019-03-07 16:11] VITALS: BP 134/84
--- NOTE | 2019-03-08 14:05 | PDOC DISCHARGE SUMMARY ---
Impression - Admit/DC Date/PCP Admission Date/Primary Care Provider: 03/06/19 03:49 JUANCARLOS SULLIVAN MD Discharge Date: 03/07/19 - Additional Information Resuscitation Status: Full Code Discharge Diet: Cardiac Discharge Activity: Activity As Tolerated, Balance Activity w/Rest Referrals: ALTA NAYLOR MD [ACTIVE STAFF] - 03/15/19 10:45 am Prescriptions: Meclizine HCl [Antivert 25 mg Tablet] 25 mg PO Q8HP PRN #30 tablet PRN Reason: Home Medications: Benazepril HCl 40 mg PO DAILY 03/06/19 Hydrochlorothiazide [Hydrodiuril 25 mg Tablet] 25 mg PO DAILY 03/06/19 Acetaminophen [Tylenol 325 mg Tablet] 650 mg PO Q4HP PRN tablet 03/07/19 Meclizine HCl [Antivert 25 mg Tablet] 25 mg PO Q8HP PRN #30 tablet 03/07/19 History of Present Illiness History of Present Illness: Per Dr. Farias: MARCOS ARMENDARIZ JR is a 63 year old male with a past medical history of osteoarthritis and hypertension presents with 3 days of general fatigue followed by 2 presyncopal episodes in the last 12 hours occurring upon standing from a sitting position. 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 He denies headache, blurred vision, focal weakness, chest pain shortness of breath nausea vomiting or palpitations. He denies recent change of medications, excessive energy drinks or caffeine. In the emergency room he is found to have bradycardia and a nonspecific intraventricular conduction delay. Orthostatic blood pressures are unable to reproduce symptoms and he is referred to the hospitalist for admission. Patient is tearful and does admit exceptional social stressors and describes grief after the recent of his brother from an unknown cancer. Hospital Course Hospital Course: The patient was admitted to [facility] on continuous cardiac telemetry. EKG demonstrated Sinus bradycardia. Chest x-ray showed questionable right upper lobe opacity. D-dimer was elevated so a CTA of the chest was obtained; fortunately normal. Cardiac enzymes were negative x4. Remaining operatory evaluation was unremarkable. Carotid Doppler did show bilateral 50% occlusion to ICA; not significant enough to have caused his dizziness/near syncopal symptoms. Echocardiogram was obtained; at time of this dictation formalize report is still pending. However, preliminary review is reassuring. He remained in normal sinus rhythm throughout his admission. The patient was provided gentle IV fluids and monitored overnight. His symptoms resolved and did not recur with resuming activity the following morning. After further discussion; his symptoms do strongly resemble vertigo as he had a strong left leading to look sensation prior to onset of diaphoresis, nausea, and near syncope. He does confirm that he has felt fatigued and had a sore throat 4 days prior; perhaps mild viral upper respiratory infection or allergic rhinitis. Discharge, the patient was in stable condition, asymptomatic, and independently ambulatory on room air. He is discharged home with self-care. He is advised to use [id number] meclizine as needed for symptom management and provided a patient education handout on [place] maneuvers. He is encouraged to drink plenty of water, change positions slowly, and rest. He is instructed to follow-up with his primary care provider within 1 week and to return to the emergency department as needed for any concerning symptoms. Physical Exam Vital Signs: Temp Pulse Resp BP Pulse Ox 97.4 F 53 L 16 134/84 H 100 03/07/19 16:09 03/07/19 16:09 03/07/19 16:09 03/07/19 16:09 03/07/19 16:09 Intake & Output 03/07/19 03/08/19 03/09/19 06:59 06:59 06:59 Intake Total 2670 Output Total 0 Balance 2670 Weight 101.7 kg General appearance: PRESENT: no acute distress, cooperative, obese, well- developed, well-nourished Head exam: PRESENT: atraumatic, normocephalic Eye exam: PRESENT: conjunctiva pink, EOMI, PERRLA. ABSENT: scleral icterus Ear exam: PRESENT: normal external ear exam Mouth exam: PRESENT: moist, tongue midline Neck exam: ABSENT: carotid bruit, JVD, lymphadenopathy, thyromegaly Respiratory exam: PRESENT: clear to auscultation leila, symmetrical, unlabored. ABSENT: rales, rhonchi, wheezes Cardiovascular exam: PRESENT: RRR, +S1, +S2. ABSENT: diastolic murmur, rubs, systolic murmur Pulses: PRESENT: normal dorsalis pedis pul Vascular exam: PRESENT: normal capillary refill GI/Abdominal exam: PRESENT: normal bowel sounds, soft. ABSENT: distended, guarding, mass, organolmegaly, rebound, tenderness Rectal exam: PRESENT: deferred Extremities exam: PRESENT: full ROM. ABSENT: calf tenderness, clubbing, pedal edema Musculoskeletal exam: PRESENT: ambulatory - On room air; asymptomatic Neurological exam: PRESENT: alert, awake, oriented to person, oriented to place, oriented to time, oriented to situation, CN II-XII grossly intact. ABSENT: motor sensory deficit Psychiatric exam: PRESENT: appropriate affect, normal mood. ABSENT: homicidal ideation, suicidal ideation Skin exam: PRESENT: dry, intact, warm. ABSENT: cyanosis, rash Results Laboratory Results: WBC 6.8 10^3/uL (4.0-10.5) 03/05/19 23:20 RBC 4.96 10^6/uL (4.35-5.55) 03/05/19 23:20 Hgb 14.9 g/dL (13.5-17.0) 03/05/19 23:20 Hct 43.5 % (37.9-51.0) 03/05/19 23:20 MCV 88 fl (80-97) 03/05/19 23:20 MCH 30.1 pg (27.0-33.4) 03/05/19 23:20 MCHC 34.3 g/dL (32.0-36.0) 03/05/19 23:20 RDW 12.6 % (11.5-14.0) 03/05/19 23:20 Plt Count 286 10^3/uL (150-450) 03/05/19 23:20 Lymph % (Auto) 26.3 % (13-45) 03/05/19 23:20 Bay % (Auto) 4.7 % (3-13) 03/05/19 23:20 Eos % (Auto) 1.6 % (0-6) 03/05/19 23:20 Baso % (Auto) 0.9 % (0-2) 03/05/19 23:20 Absolute Neuts (auto) 4.5 10^3/uL (1.7-8.2) 03/05/19 23:20 Absolute Lymphs (auto) 1.8 10^3/uL (0.5-4.7) 03/05/19 23:20 Absolute Monos (auto) 0.3 10^3/uL (0.1-1.4) 03/05/19 23:20 Absolute Eos (auto) 0.1 10^3/uL (0.0-0.6) 03/05/19 23:20 Absolute Basos (auto) 0.1 10^3/uL (0.0-0.2) 03/05/19 23:20 Seg Neutrophils % 66.5 % (42-78) 03/05/19 23:20 D-Dimer 1.26 ug/mL (0.00-0.50) H 03/06/19 08:16 Sodium 135.9 mmol/L (137-145) L 03/05/19 23:20 Potassium 3.8 mmol/L (3.6-5.0) 03/05/19 23:20 Chloride 100 mmol/L (98-107) 03/05/19 23:20 Carbon Dioxide 25 mmol/L (22-30) 03/05/19 23:20 Anion Gap 11 (5-19) 03/05/19 23:20 BUN 21 mg/dL (7-20) H 03/05/19 23:20 Creatinine 1.05 mg/dL (0.52-1.25) 03/05/19 23:20 Est GFR ( Amer) > 60 (>60) 03/05/19 23:20 Est GFR (MDRD) Non-Af > 60 (>60) 03/05/19 23:20 Glucose 155 mg/dL (75-110) H 03/05/19 23:20 Calcium 9.6 mg/dL (8.4-10.2) 03/05/19 23:20 Magnesium 1.9 mg/dL (1.6-2.3) 03/06/19 03:10 Total Bilirubin 1.0 mg/dL (0.2-1.3) 03/05/19 23:20 Direct Bilirubin 0.2 mg/dL (0.0-0.4) 03/05/19 23:20 Neonat Total Bilirubin Not Reportable 03/05/19 23:20 Neonat Direct Bilirubin Not Reportable 03/05/19 23:20 Neonat Indirect Bili Not Reportable 03/05/19 23:20 AST 28 U/L (17-59) 03/05/19 23:20 ALT 24 U/L (<50) 03/05/19 23:20 Alkaline Phosphatase 85 U/L (38-126) 03/05/19 23:20 Creatine Kinase 124 U/L (55-170) 03/06/19 14:25 CK-MB (CK-2) 1.37 ng/mL (<4.55) 03/06/19 14:25 Troponin I < 0.012 ng/mL 03/06/19 14:25 Total Protein 7.4 g/dL (6.3-8.2) 03/05/19 23:20 Albumin 4.2 g/dL (3.5-5.0) 03/05/19 23:20 Urine Color YELLOW 03/06/19 00:41 Urine Appearance CLEAR 03/06/19 00:41 Urine pH 5.0 (5.0-9.0) 03/06/19 00:41 Ur Specific [place] 1.029 03/06/19 00:41 Urine Protein NEGATIVE mg/dL (NEGATIVE) 03/06/19 00:41 Urine Glucose (UA) NEGATIVE mg/dL (NEGATIVE) 03/06/19 00:41 Urine Ketones NEGATIVE mg/dL (NEGATIVE) 03/06/19 00:41 Urine Blood NEGATIVE (NEGATIVE) 03/06/19 00:41 Urine Nitrite NEGATIVE (NEGATIVE) 03/06/19 00:41 Urine Bilirubin NEGATIVE (NEGATIVE) 03/06/19 00:41 Urine Urobilinogen 2.0 mg/dL (<2.0) H 03/06/19 00:41 Ur Leukocyte Esterase NEGATIVE (NEGATIVE) 03/06/19 00:41 Urine WBC (Auto) 1 /HPF 03/06/19 00:41 Urine RBC (Auto) 2 /HPF 03/06/19 00:41 U Hyaline Cast (Auto) 1 /LPF 03/06/19 00:41 Urine Bacteria (Auto) TRACE /HPF 03/06/19 00:41 Urine Mucus (Auto) RARE /LPF 03/06/19 00:41 Urine Ascorbic Acid NEGATIVE (NEGATIVE) 03/06/19 00:41 Urine Opiates Screen NEGATIVE 03/06/19 00:41 Urine Methadone Screen NEGATIVE 03/06/19 00:41 Ur Barbiturates Screen NEGATIVE 03/06/19 00:41 Ur Phencyclidine Scrn NEGATIVE 03/06/19 00:41 Ur Amphetamines Screen NEGATIVE 03/06/19 00:41 U Benzodiazepines Scrn NEGATIVE 03/06/19 00:41 Urine Cocaine Screen NEGATIVE 03/06/19 00:41 U Marijuana (THC) Screen NEGATIVE 03/06/19 00:41 03/05/19 03/06/19 03/06/19 23:20 03:10 08:16 CK-MB (CK-2) 2.05 1.72 1.52 Troponin I < 0.012 < 0.012 < 0.012 03/06/19 14:25 CK-MB (CK-2) 1.37 Troponin I < 0.012 Impressions: Chest X-Ray 03/05/19 23:18 IMPRESSION: Asymmetric nodular opacity projecting about the right apex appears new from the previous study dated 03/08/2012. Recommend correlation with dedicated CT of the chest. Otherwise, clear lungs. copyright 2011 [employer]- All Rights Reserved Chest/Abdomen CTA 03/06/19 00:00 IMPRESSION: NORMAL CTA OF THE CHEST. NO PULMONARY EMBOLI. Carotid Doppler Study 03/07/19 00:00 IMPRESSION: 50 to 69% stenosis of the right ICA based upon velocity measurements. Less than 50% stenosis on the left. Plan Plan of Treatment: The patient is discharged home, in stable condition, to self-care. He is provided a handout on [employer] maneuvers for self-management of vertigo. He is instructed to drink plenty of fluids and change positions slowly. He is advised to continue his medications unchanged. He is instructed to follow-up with his primary care provider within 1 week and to return to the emergency department as needed for concerning symptoms. Stroke Is this a Stroke Patient?: No Acute Heart Failure - Is this a Heart Failure Patient?: No
--- NOTE | 2019-03-09 07:32 | XCELERA REPORT ---
[address] [address] Transthoracic Echocardiogram Report Name: MARCOS ARMENDARIZ JR, JR Age: 63 yrs Gender: Male : 1955 Patient Status: Inpatient Patient Location: [address] [place], [place] [id number] Study Date: 03/07/2019 09:39 AM Height: 71 in Weight: 222 lb BSA: 2.2 m2 Procedure: A two-dimensional transthoracic echocardiogram with color flow and Doppler was performed. The study was technically adequate with some images being suboptimal in quality. Reason For Study: syncope History: syncope. Ordering Physician: JAYNE JACKSON Performed By: Janet Perez Interpretation Summary The left ventricle is normal in size. There is normal left ventricular wall thickness. LV EF is 55% Left ventricular systolic function is low normal. Doppler measurements suggest normal left ventricular diastolic function The left ventricular wall motion is normal. There is no thrombus. cannot assess for ASD ,VSD ,or PFO. The right ventricle is grossly normal size. The right atrium is normal. The left atrial size is normal. There is no evidence of mitral valve prolapse. There is no mitral valve stenosis. There is no mitral regurgitation noted. There is no aortic valvular vegetation. There is no aortic valve stenosis There is aortic sclerosis without aortic stenosis. There is no LVOT obstruction. There is a trace amount of aortic regurgitation There is no tricuspid stenosis. There is a trace amount of tricuspid regurgitation Right ventricular systolic pressure is normal. RVSP is 15 to 20 mm of Hg , with RA mean of 5 to 10. There is no pulmonic valvular stenosis. There is no pulmonic valvular regurgitation. The aortic root is normal size. The inferior vena cava appeared normal and decreased > 50% with respiration (RAP 5-10 mmHg) There is no pericardial effusion. MMode/2D Measurements & Calculations RVDd: 2.9 cm LVIDd: 5.9 cm FS: 36.0 % Ao root diam: 3.4 cm IVSd: 0.82 cm LVIDs: 3.8 cm EDV(Teich): 172.0 ml Ao root area: 8.9 cm2 LVPWd: 1.0 cm ESV(Teich): 60.6 ml EF(Teich): 64.8 % Doppler Measurements & Calculations MV E max mello: MV dec slope: Ao V2 max: AI max mello: 80.1 cm/sec 392.0 cm/sec2 136.3 cm/sec 314.2 cm/sec MV A max mello: MV dec time: Ao max PG: AI max P.5 mmHg 73.2 cm/sec 0.20 sec 7.4 mmHg AI dec slope: MV E/A: 1.1 146.8 cm/sec2 AI P1/2t: 626.9 msec LV V1 max PG: PA V2 max: PI end-d mello: TR max mello: 3.1 mmHg 60.9 cm/sec 58.4 cm/sec 161.2 cm/sec LV V1 max: PA max P.5 mmHg TR max P.4 mmHg 87.3 cm/sec Left Ventricle The left ventricle is normal in size. There is normal left ventricular wall thickness. LV EF is 55%. Left ventricular systolic function is low normal. Doppler measurements suggest normal left ventricular diastolic function. The left ventricular wall motion is normal. There is no thrombus. cannot assess for ASD ,VSD ,or PFO. Right Ventricle The right ventricle is grossly normal size. Atria The right atrium is normal. The left atrial size is normal. Mitral Valve There is no evidence of mitral valve prolapse. There is no vegetation seen on the mitral valve. There is no mitral valve stenosis. There is no mitral regurgitation noted. Aortic Valve There is no aortic valvular vegetation. There is no aortic valve stenosis. There is aortic sclerosis without aortic stenosis. There is no LVOT obstruction. There is a trace amount of aortic regurgitation. Tricuspid Valve There is no tricuspid stenosis. There is a trace amount of tricuspid regurgitation. Right ventricular systolic pressure is normal. RVSP is 15 to 20 mm of Hg , with RA mean of 5 to 10. Pulmonic Valve There is no pulmonic valvular stenosis. There is no pulmonic valvular regurgitation. Great Vessels The aortic root is normal size. The inferior vena cava appeared normal and decreased > 50% with respiration (RAP 5-10 mmHg). Effusions There is no pericardial effusion. : JAYNE JACKSON Lakshmi
== END 2019-03-07 16:58 | disposition home or self-care (01) ==
LOC: ER 20:40 → EH 03-06 03:49 → 3W 03-06 05:15
PROVIDERS: ADMIT Internal Medicine; ATTEND Internal Medicine
DX: R42 Dizziness and giddiness (principal); R00.1 Bradycardia, unspecified; F43.21 Adjustment disorder with depressed mood; Z79.899 Other long term (current) drug therapy; R53.83 Other fatigue; J02.9 Acute pharyngitis, unspecified; M19.90 Unspecified osteoarthritis, unspecified site; I10 Essential (primary) hypertension; I65.23 Occlusion and stenosis of bilateral carotid arteries; E66.9 Obesity, unspecified; R91.8 Other nonspecific abnormal finding of lung field; R11.2 Nausea with vomiting, unspecified; R68.84 Jaw pain; R61 Generalized hyperhidrosis; I44.0 Atrioventricular block, first degree; R53.1 Weakness; Z63.4 Disappearance and death of family member; Z85.828 Personal history of other malignant neoplasm of skin
CPT/HCPCS: 93005; 99285; 96360; 36415 ×2; 82553 ×2; 82550 ×2; 83735; 85025; 80053; 81001; 84484 ×2; 80307; 85379; 93306; 93880; 71045; 71275; 93010; G0378 ×3; J1644 ×2; J7030; A9270 ×2

== ENCOUNTER → 2019-04-21 | Outpatient (CLI) | payer MEDICARE, OTHER ==
--- NOTE | 2019-04-21 09:52 | EKG REPORT ---
SEVERITY:- BORDERLINE ECG - SINUS RHYTHM BORDERLINE T ABNORMALITIES, ANT-LAT LEADS : Confirmed by: Ghada Perdue MD 21-Apr-2019 09:51:56
[2019-04-21 10:25] LABS: ABSOLUTE EOSINOPHILS # (AUTO) 0.2 10^3/uL (0.0-0.6); ABSOLUTE LYMPHOCYTES (AUTO) 2.9 10^3/uL (0.5-4.7); ABSOLUTE MONOCYTES (AUTO) 0.2 10^3/uL (0.1-1.4); ABSOLUTE NEUT (AUTO) 2.4 10^3/uL (1.7-8.2); BASOPHILS % (AUTO) 0.7 % (0-2); EOSINOPHILS % (AUTO) 3.2 % (0-6); HEMATOCRIT 46.8 % (37.9-51.0); HEMOGLOBIN 16.2 g/dL (13.5-17.0); LYMPHOCYTES % (AUTO) 50.4 % (13-45); MEAN CORPUSCULAR HEMOGLOBIN 30.8 pg (27.0-33.4); MEAN CORPUSCULAR HGB CONC 34.6 g/dL (32.0-36.0); MEAN CORPUSCULAR VOLUME 89 fl (80-97); MONOCYTES % (AUTO) 4.2 % (3-13); PLATELET COUNT 308 10^3/uL (150-450); RED BLOOD COUNT 5.26 10^6/uL (4.35-5.55); RED CELL DISTRIBUTION WIDTH 12.8 % (11.5-14.0); SEGMENTED NEUTROPHILS % (AUTO) 41.5 % (42-78); TOTAL CELLS COUNTED % (AUTO) 100 %; WHITE BLOOD COUNT 5.8 10^3/uL (4.0-10.5)
[2019-04-21 10:52] LABS: ANION GAP 8 (5-19); BLOOD UREA NITROGEN 11 mg/dL (7-20); CALCIUM 9.9 mg/dL (8.4-10.2); CARBON DIOXIDE 30 mmol/L (22-30); CHLORIDE 101 mmol/L (98-107); GLUCOSE 106 mg/dL (75-110); POTASSIUM 4.1 mmol/L (3.6-5.0)
== END ==
LOC: OD 09:18
PROVIDERS: ATTEND Orthopaedic Surgery
DX: Z01.810 Encounter for preprocedural cardiovascular examination (principal); M17.11 Unilateral primary osteoarthritis, right knee; I10 Essential (primary) hypertension
CPT/HCPCS: 36415; 80048; 85025; 93005; 93010